=== PATIENT | male | born 1935 | race Caucasian/White ===

== ENCOUNTER 2019-10-01 19:04 | Inpatient (IN) | payer MEDICARE, MEDICAID ==
[~2019-10-01] VITALS: Ht 160 cm; Wt 54.0 kg
[2019-10-01] MEDS ORDERED: TETANUS AND DIPHTHERIA TOX/PF 0.5ML SYR (ADULT) IM ONE (20:00)
[2019-10-01 21:27] LABS: BASOPHILS % 1.2 % (0.0-2.0); EOSINOPHILS % 1.3 % (0.0-5.0); HEMATOCRIT. 35.2 % (42.0-52.0); HEMOGLOBIN. 11.8 g/dL (14.0-18.0); MEAN CORPUSCULAR HEMOGLOBIN 33.2 pg (28.0-32.0); MEAN PLATELET VOLUME 8.4 fl (7.4-10.4); MONOCYTES % 12.1 % (2.0-8.0); NEUTROPHILS % 65.4 % (40.0-76.0); PLATELET 244 x1000/uL (130-400); RED BLOOD CELL COUNT 3.56 mill/uL (4.7-6.1); RED CELL DISTRIBUTION WIDTH 18.8 % (11.6-14.6)
[2019-10-01 21:30] LABS: CHLORIDE 99 mEq/L (98-107)
[2019-10-01] MEDS ORDERED: NICARDIPINE 100 MG in SODIUM CHLORIDE 0.9% 60 ML IV PRN (22:30)
[2019-10-01] MEDS: DEXT 5%/0.9% NACL 1,000 ML IV SCH (22:30)
[2019-10-01] MEDS ORDERED: ACETAMINOPHEN 500MG TABLET PO ONE (22:45)
[2019-10-01] MEDS ORDERED: LEVETIRACETAM 500MG PREMIX 100 ML IV NR (23:00)
[2019-10-01] MEDS: NICARDIPINE 100 MG in SODIUM CHLORIDE 0.9% 60 ML IV PRN (23:28)
[2019-10-01] MEDS ORDERED: HYDROCODONE/ACETAMINOPHEN 5/325MG TABLET PO PRN (23:30)
[2019-10-02] VITALS (70 sets, daily range): BP systolic 78–144; BP diastolic 33–94
[2019-10-02] MEDS: MORPHINE SULFATE 2 MG/ML CPJ (NOT FOR IM USE) IV PRN ×2 (01:20→17:04)
[2019-10-02] MEDS: ONDANSETRON HCL 4MG/2ML INJ IV PRN (01:20)
[2019-10-02] MEDS ORDERED: LISINOPRIL 10MG TABLET PO SCH (04:15)
[2019-10-02 07:15] LABS: EOSINOPHILS % 2.5 % (0.0-5.0); HEMATOCRIT. 28.1 % (42.0-52.0); HEMOGLOBIN. 9.6 g/dL (14.0-18.0); LYMPHOCYTES % 21.5 % (20.0-50.0); MEAN CORPUSCULAR HEMOGLOBIN 33.6 pg (28.0-32.0); MEAN CORPUSCULAR VOLUME 98.2 fL (80.0-94.0); MEAN PLATELET VOLUME 7.8 fl (7.4-10.4); MONOCYTES % 11.3 % (2.0-8.0); NEUTROPHILS % 63.7 % (40.0-76.0); PLATELET 215 x1000/uL (130-400); RED BLOOD CELL COUNT 2.86 mill/uL (4.7-6.1); RED CELL DISTRIBUTION WIDTH 18.7 % (11.6-14.6)
[2019-10-02 07:30] LABS: CREATINE KINASE MB FRACTION 1.4 ng/mL (0.5-3.6)
[2019-10-02] MEDS: LISINOPRIL 10MG TABLET PO SCH (09:00)
[2019-10-02] MEDS ORDERED: LEVETIRACETAM 500MG PREMIX 100 ML IV SCH (09:00)
[2019-10-02] MEDS ORDERED: LEVETIRACETAM 500MG in SODIUM CHLORIDE 0.9% 100ML IV SCH (09:00)
[2019-10-02 10:31] LABS: TOTAL IRON BINDING CAPACITY 234 ug/dL (250-450)
[2019-10-02 11:00] LABS: FERRITIN 642 ng/mL (22-322)
[2019-10-02 11:11] LABS: HEPATITIS B SURFACE ANTIGEN NEGATIVE
[2019-10-02] MEDS: NICARDIPINE 100 MG in SODIUM CHLORIDE 0.9% 60 ML IV PRN (11:17)
[2019-10-02 11:41] LABS: HEPATITIS A AB IGM NEGATIVE (NEGATIVE)
[2019-10-02] MEDS: FERROUS SULFATE 325MG TABLET PO SCH (11:47)
[2019-10-02] MEDS: LEVETIRACETAM 500MG PREMIX 100 ML IV SCH ×2 (11:48→21:45)
[2019-10-02 16:52] LABS: CREATINE KINASE MB FRACTION 1.2 ng/mL (0.5-3.6)
[2019-10-02] MEDS ORDERED: SEVE800T8 MT (19:23)
[2019-10-02] MEDS ORDERED: AMLO10TA80 MT (19:23)
[2019-10-02] MEDS ORDERED: BENA20TA10 MT (19:23)
[2019-10-02] MEDS ORDERED: FOLI1TAB63 MT (19:23)
[2019-10-02] MEDS ORDERED: TRAZ-251 MT (19:23)
[2019-10-03] VITALS (90 sets, daily range): BP systolic 91–142; BP diastolic 33–110
[2019-10-03] MEDS: NICARDIPINE 100 MG in SODIUM CHLORIDE 0.9% 60 ML IV PRN (03:38)
[2019-10-03] MEDS: DEXT 5%/0.9% NACL 1,000 ML IV SCH ×2 (03:38→22:15)
[2019-10-03 05:59] LABS: BASOPHILS % 0.6 % (0.0-2.0); EOSINOPHILS % 0.3 % (0.0-5.0); HEMATOCRIT. 28.9 % (42.0-52.0); HEMOGLOBIN. 9.6 g/dL (14.0-18.0); LYMPHOCYTES % 10.7 % (20.0-50.0); MEAN CORPUSCULAR HEMOGLOBIN 33.1 pg (28.0-32.0); MEAN CORPUSCULAR VOLUME 99.8 fL (80.0-94.0); MEAN PLATELET VOLUME 8.4 fl (7.4-10.4); MONOCYTES % 10.4 % (2.0-8.0); PLATELET 226 x1000/uL (130-400)
[2019-10-03] MEDS: LISINOPRIL 10MG TABLET PO SCH (09:53)
[2019-10-03] MEDS: LEVETIRACETAM 500MG PREMIX 100 ML IV SCH ×2 (09:53→20:54)
[2019-10-03] MEDS: FERROUS SULFATE 325MG TABLET PO SCH (09:53)
[2019-10-03] MEDS: RISPERIDONE 0.5MG TABLET PO SCH (16:50)
[2019-10-03] MEDS: AMLODIPINE 5MG TABLET PO SCH ×2 (20:54→21:00)
[2019-10-03] MEDS: LISINOPRIL 20MG TABLET PO SCH ×2 (20:55→21:00)
[2019-10-04] VITALS (64 sets, daily range): BP systolic 98–164; BP diastolic 44–102
[2019-10-04] MEDS: LORAZEPAM 2MG/ML CPJ IV PRN (04:12)
[2019-10-04 06:00] LABS: BASOPHILS % 0.3 % (0.0-2.0); EOSINOPHILS % 0.4 % (0.0-5.0); HEMATOCRIT. 28.2 % (42.0-52.0); HEMOGLOBIN. 9.6 g/dL (14.0-18.0); MEAN CORPUSCULAR HEMOGLOBIN 33.9 pg (28.0-32.0); MEAN CORPUSCULAR VOLUME 99.5 fL (80.0-94.0); MEAN PLATELET VOLUME 8.7 fl (7.4-10.4); MONOCYTES % 7.8 % (2.0-8.0); NEUTROPHILS % 82.5 % (40.0-76.0); PLATELET 223 x1000/uL (130-400); RED BLOOD CELL COUNT 2.83 mill/uL (4.7-6.1); RED CELL DISTRIBUTION WIDTH 18.7 % (11.6-14.6)
[2019-10-04] MEDS ORDERED: LISINOPRIL 20MG TABLET PO SCH (09:00)
[2019-10-04] MEDS: FERROUS SULFATE 325MG TABLET PO SCH (09:31)
[2019-10-04] MEDS: LISINOPRIL 20MG TABLET PO SCH ×2 (11:15→21:44)
[2019-10-04] MEDS: AMLODIPINE 5MG TABLET PO SCH ×2 (11:15→21:43)
[2019-10-04] MEDS: RISPERIDONE 0.5MG TABLET PO SCH (11:15)
[2019-10-04] MEDS: LEVETIRACETAM 500MG PREMIX 100 ML IV SCH ×2 (11:16→22:49)
[2019-10-04] MEDS: DEXT 5%/0.9% NACL 1,000 ML IV SCH (11:17)
[2019-10-04] MEDS: CLONIDINE 0.1MG TABLET PO PRN (17:24)
[2019-10-05] VITALS (10 sets, daily range): BP systolic 121–161; BP diastolic 55–74
[2019-10-05] MEDS: LORAZEPAM 2MG/ML CPJ IV PRN ×2 (02:34→22:50)
[2019-10-05 07:54] LABS: BASOPHILS % 0.8 % (0.0-2.0); EOSINOPHILS % 2.5 % (0.0-5.0); HEMATOCRIT. 28.5 % (42.0-52.0); HEMOGLOBIN. 9.6 g/dL (14.0-18.0); MEAN CORPUSCULAR HEMOGLOBIN 33.6 pg (28.0-32.0); MEAN CORPUSCULAR VOLUME 99.6 fL (80.0-94.0); MEAN PLATELET VOLUME 8.5 fl (7.4-10.4); MONOCYTES % 8.6 % (2.0-8.0); NEUTROPHILS % 72.1 % (40.0-76.0); PLATELET 206 x1000/uL (130-400); RED BLOOD CELL COUNT 2.86 mill/uL (4.7-6.1); RED CELL DISTRIBUTION WIDTH 18.6 % (11.6-14.6)
[2019-10-05] MEDS: RISPERIDONE 0.5MG TABLET PO SCH (08:34)
[2019-10-05] MEDS: LISINOPRIL 20MG TABLET PO SCH ×2 (08:35→21:19)
[2019-10-05] MEDS: AMLODIPINE 5MG TABLET PO SCH ×2 (08:35→21:19)
[2019-10-05] MEDS: FERROUS SULFATE 325MG TABLET PO SCH (09:04)
[2019-10-05] MEDS: LEVETIRACETAM 500MG PREMIX 100 ML IV SCH ×2 (11:27→21:15)
[2019-10-05] MEDS: DEXT 5%/0.9% NACL 1,000 ML IV SCH (19:43)
[2019-10-06] VITALS (10 sets, daily range): BP systolic 135–169; BP diastolic 65–76
[2019-10-06] MEDS: CLONIDINE 0.1MG TABLET PO PRN (02:07)
[2019-10-06] MEDS: LEVETIRACETAM 500MG PREMIX 100 ML IV SCH ×2 (09:22→20:21)
[2019-10-06] MEDS: LISINOPRIL 20MG TABLET PO SCH ×2 (09:22→20:22)
[2019-10-06] MEDS: FERROUS SULFATE 325MG TABLET PO SCH (09:22)
[2019-10-06] MEDS: AMLODIPINE 5MG TABLET PO SCH ×2 (09:22→20:22)
[2019-10-06] MEDS: RISPERIDONE 0.5MG TABLET PO SCH (09:22)
[2019-10-06] MEDS: LORAZEPAM 2MG/ML CPJ IV PRN ×3 (10:26→22:22)
[2019-10-06] MEDS ORDERED: MAGNESIUM/ALUMINUM HYDROXIDE/SIMETHICONE 30ML UDC PO PRN (11:00)
[2019-10-06] MEDS: MEGESTROL ACETATE 400 MG/10 ML UDC PO SCH (14:15)
[2019-10-06] MEDS ORDERED: LEVETIRACETAM 500MG TABLET PO SCH (21:00)
[2019-10-06] MEDS: IPRATROPIUM BROMIDE (0.02%) 0.5MG/2.5ML NEB HHN PRN (21:03)
[2019-10-07] VITALS (12 sets, daily range): BP systolic 147–176; BP diastolic 44–91
[2019-10-07] MEDS: IPRATROPIUM BROMIDE (0.02%) 0.5MG/2.5ML NEB HHN PRN (01:07)
[2019-10-07 08:09] LABS: BG BASE EXCESS -5.1 mmol/L (-2.0-2.0); BG CARBOXYHEMOGLOBIN 0.3 % (0.5-1.5); BG DEOXYHEMOGLOBIN 10.9 % (0.0-5.0); BG FRACTION INSPIRED OXYGEN 21; BG HCO3 ACT 18.3 mmol/L (22.0-26.0); BG METHEMOGLOBIN 0.3 % (0.0-1.5); BG OXYHEMOGLOBIN 88.5 % (94.0-97.0); BG PH 7.432 (7.350-7.450); BG SAMPLE SITE RIGHT RADIAL; BG TOTAL HEMOGLOBIN 9.8 g/dL (12.0-18.0); BG VENT MODE ROOM AIR
[2019-10-07] MEDS ORDERED: PIPERACILLIN/TAZOBACTAM 2.25 G in DEXTROSE 5% WATER 50 ML IV SCH (08:45)
[2019-10-07] MEDS ORDERED: MEGESTROL ACETATE 400 MG/10 ML UDC PO SCH (09:00)
[2019-10-07] MEDS: RISPERIDONE 0.5MG TABLET PO SCH (09:00)
[2019-10-07] MEDS ORDERED: LEVETIRACETAM 500MG TABLET PO SCH (09:00)
[2019-10-07] MEDS: MEGESTROL ACETATE 400 MG/10 ML UDC PO SCH (09:00)
[2019-10-07] MEDS: LISINOPRIL 20MG TABLET PO SCH ×2 (09:00→21:00)
[2019-10-07] MEDS: AMLODIPINE 5MG TABLET PO SCH ×2 (09:00→21:00)
[2019-10-07] MEDS ORDERED: LIDOCAINE HCL 1% 20ML VIAL (Pyxis) INJ ONE (09:02)
[2019-10-07] MEDS ORDERED: HEPARIN 100 UNITS/1 ML VIAL IVF PRN (10:00)
[2019-10-07] MEDS ORDERED: VANCOMYCIN 1250MG in DEXTROSE 5% WATER 250ML IV SCH (10:00)
[2019-10-07 11:26] LABS: BG BASE EXCESS -2.8 mmol/L (-2.0-2.0); BG BILEVEL POS AIRWAY PRESSURE 15/5; BG CARBOXYHEMOGLOBIN 0.3 % (0.5-1.5); BG DEOXYHEMOGLOBIN 0.2 % (0.0-5.0); BG FRACTION INSPIRED OXYGEN 100; BG HCO3 ACT 20.5 mmol/L (22.0-26.0); BG METHEMOGLOBIN 0.4 % (0.0-1.5); BG OXYGEN SATURATION 99.8 % (92.0-98.5); BG OXYHEMOGLOBIN 99.1 % (94.0-97.0); BG PCO2 31.4 mmHg (35.0-45.0); BG PH 7.433 (7.350-7.450); BG PO2 439.2 mmHg (75.0-100.0); BG SAMPLE SITE RIGHT RADIAL; BG TOTAL HEMOGLOBIN 12.5 g/dL (12.0-18.0); BG VENT MODE MASK - BIPAP; BG VENT RATE 18 set
[2019-10-07] MEDS: IPRATROPIUM/ALBUTEROL 0.5-3(2.5)MG/3ML NEB HHN SCH ×3 (11:59→20:42)
[2019-10-07] MEDS: ACETYLCYSTEINE 100MG/ML 10% VIAL 4ML INH SCH (12:00)
[2019-10-07] MEDS: PIPERACILLIN/TAZOBACTAM 2.25 G in DEXTROSE 5% WATER 50 ML IV SCH ×2 (16:25→22:56)
[2019-10-07] MEDS: DEXT 5%/0.9% NACL 1,000 ML IV SCH (22:46)
[2019-10-07] MEDS: HYDRALAZINE 20MG/ML VIAL IV PRN (22:47)
[2019-10-07] MEDS: LEVETIRACETAM 500MG PREMIX 100 ML IV SCH (22:55)
[2019-10-08] VITALS (12 sets, daily range): BP systolic 110–173; BP diastolic 49–106
[2019-10-08] MEDS: IPRATROPIUM/ALBUTEROL 0.5-3(2.5)MG/3ML NEB HHN SCH ×5 (00:50→20:22)
[2019-10-08] MEDS: IPRATROPIUM BROMIDE (0.02%) 0.5MG/2.5ML NEB HHN PRN (00:50)
[2019-10-08] MEDS: ACETYLCYSTEINE 100MG/ML 10% VIAL 4ML INH SCH ×2 (00:50→12:51)
[2019-10-08] MEDS: ONDANSETRON HCL 4MG/2ML INJ IV PRN ×2 (02:11→21:58)
[2019-10-08] MEDS: PIPERACILLIN/TAZOBACTAM 2.25 G in DEXTROSE 5% WATER 50 ML IV SCH ×3 (05:05→21:58)
[2019-10-08 07:02] LABS: BASOPHILS % 0.6 % (0.0-2.0); EOSINOPHILS % 0.9 % (0.0-5.0); HEMATOCRIT. 25.2 % (42.0-52.0); HEMOGLOBIN. 8.5 g/dL (14.0-18.0); LYMPHOCYTES % 16.6 % (20.0-50.0); MEAN CORPUSCULAR HEMOGLOBIN 33.1 pg (28.0-32.0); MEAN CORPUSCULAR VOLUME 98.2 fL (80.0-94.0); MEAN PLATELET VOLUME 8.4 fl (7.4-10.4); MONOCYTES % 13.6 % (2.0-8.0); NEUTROPHILS % 68.3 % (40.0-76.0); PLATELET 242 x1000/uL (130-400); RED BLOOD CELL COUNT 2.57 mill/uL (4.7-6.1); RED CELL DISTRIBUTION WIDTH 17.5 % (11.6-14.6)
[2019-10-08 08:07] LABS: BG BASE EXCESS -0.5 mmol/L (-2.0-2.0); BG CARBOXYHEMOGLOBIN 0.3 % (0.5-1.5); BG FRACTION INSPIRED OXYGEN 32; BG HCO3 ACT 22.8 mmol/L (22.0-26.0); BG METHEMOGLOBIN 0.1 % (0.0-1.5); BG OXYHEMOGLOBIN 93.6 % (94.0-97.0); BG SAMPLE SITE RIGHT RADIAL; BG TOTAL HEMOGLOBIN 9.3 g/dL (12.0-18.0); BG VENT MODE NASAL CANNULA
[2019-10-08] MEDS: LEVETIRACETAM 500MG PREMIX 100 ML IV SCH ×2 (08:46→21:57)
[2019-10-08] MEDS: AMLODIPINE 5MG TABLET PO SCH ×2 (09:00→21:00)
[2019-10-08] MEDS: RISPERIDONE 0.5MG TABLET PO SCH (09:00)
[2019-10-08] MEDS: MEGESTROL ACETATE 400 MG/10 ML UDC PO SCH (13:01)
[2019-10-08] MEDS: LISINOPRIL 20MG TABLET PO SCH ×2 (13:02→21:00)
[2019-10-08] MEDS ORDERED: VANCOMYCIN 1250MG in DEXTROSE 5% WATER 250ML IV NR (18:00)
[2019-10-08] MEDS ORDERED: VANCOMYCIN HCL 750 MG in DEXT 5% WATER 250 ML IV NR (18:00)
[2019-10-08] MEDS ORDERED: IOHEXOL-350 100 ML BOTTLE ONE (22:37)
[2019-10-09] VITALS (13 sets, daily range): BP systolic 123–170; BP diastolic 46–96
[2019-10-09] MEDS: IPRATROPIUM/ALBUTEROL 0.5-3(2.5)MG/3ML NEB HHN SCH ×6 (00:13→20:00)
[2019-10-09] MEDS: ACETYLCYSTEINE 100MG/ML 10% VIAL 4ML INH SCH ×3 (00:13→16:36)
[2019-10-09] MEDS: PIPERACILLIN/TAZOBACTAM 2.25 G in DEXTROSE 5% WATER 50 ML IV SCH ×3 (05:42→20:28)
[2019-10-09] MEDS: DEXT 5%/0.9% NACL 1,000 ML IV SCH ×2 (05:45→23:26)
[2019-10-09] MEDS: AMLODIPINE 5MG TABLET PO SCH ×3 (08:20→20:28)
[2019-10-09] MEDS: RISPERIDONE 0.5MG TABLET PO SCH (08:20)
[2019-10-09] MEDS: MEGESTROL ACETATE 400 MG/10 ML UDC PO SCH (08:20)
[2019-10-09] MEDS: LEVETIRACETAM 500MG PREMIX 100 ML IV SCH ×2 (08:20→20:28)
[2019-10-09] MEDS: LISINOPRIL 20MG TABLET PO SCH ×2 (08:20→20:27)
[2019-10-09] MEDS: HYDRALAZINE 20MG/ML VIAL IV PRN (10:16)
[2019-10-09] MEDS: CLONIDINE 0.1MG TABLET PO PRN (11:26)
[2019-10-10] VITALS (14 sets, daily range): BP systolic 95–166; BP diastolic 34–95
[2019-10-10] MEDS: IPRATROPIUM/ALBUTEROL 0.5-3(2.5)MG/3ML NEB HHN SCH ×5 (00:46→15:02)
[2019-10-10] MEDS: ACETYLCYSTEINE 100MG/ML 10% VIAL 4ML INH SCH (00:47)
[2019-10-10] MEDS: PIPERACILLIN/TAZOBACTAM 2.25 G in DEXTROSE 5% WATER 50 ML IV SCH ×2 (05:31→14:57)
[2019-10-10] MEDS: LEVETIRACETAM 500MG PREMIX 100 ML IV SCH ×2 (09:15→20:53)
[2019-10-10] MEDS: MEGESTROL ACETATE 400 MG/10 ML UDC PO SCH (09:15)
[2019-10-10] MEDS: RISPERIDONE 0.5MG TABLET PO SCH (09:15)
[2019-10-10] MEDS: LISINOPRIL 20MG TABLET PO SCH ×2 (09:16→20:53)
[2019-10-10] MEDS: AMLODIPINE 5MG TABLET PO SCH ×2 (09:16→20:52)
[2019-10-10] MEDS: VANCOMYCIN 500 MG PREMIX 100 ML IV NR ×2 (16:16→18:29)
[2019-10-10] MEDS: IPRATROPIUM BROMIDE (0.02%) 0.5MG/2.5ML NEB HHN PRN (20:49)
[2019-10-10] MEDS: DEXT 5%/0.9% NACL 1,000 ML IV SCH (20:54)
== END 2019-10-10 22:00 | DRG 85 ==
LOC: ER 19:04 → MICUNO 21:54 → EDBEDREQTM 22:00 → EDBEDREQ 22:00 → EDBEDREQSVC 22:00 → ENRESERV 10-02 04:12 → EDBEDREQTM 10-02 04:17 → 5EST 10-04 18:33
PROVIDERS: ADMIT Internal Medicine Nephrology; ATTEND Internal Medicine Nephrology
PROC: 4A00X4Z Measurement of Central Nervous Electrical Activity, External Approach (ICD-10-PCS; principal; 2019-10-02)
PROC: 5A1D70Z Performance of Urinary Filtration, Intermittent, Less than 6 Hours Per Day (ICD-10-PCS; 2019-10-04)
PROC: B54MZZA Ultrasonography of Right Upper Extremity Veins, Guidance (ICD-10-PCS; 2019-10-07)
PROC: 05HY33Z Insertion of Infusion Device into Upper Vein, Percutaneous Approach (ICD-10-PCS; 2019-10-07)
PROC: 5A09357 Assistance with Respiratory Ventilation, Less than 24 Consecutive Hours, Continuous Positive Airway Pressure (ICD-10-PCS; 2019-10-07)
PROC: 5A1D70Z Performance of Urinary Filtration, Intermittent, Less than 6 Hours Per Day (ICD-10-PCS; 2019-10-08)
PROC: 5A1D70Z Performance of Urinary Filtration, Intermittent, Less than 6 Hours Per Day (ICD-10-PCS; 2019-10-10)
DX: S06.890A Other specified intracranial injury without loss of consciousness, initial encounter (principal); N18.6 End stage renal disease; E43 Unspecified severe protein-calorie malnutrition; G82.50 Quadriplegia, unspecified; G92 Toxic encephalopathy; I50.43 Acute on chronic combined systolic (congestive) and diastolic (congestive) heart failure; J96.01 Acute respiratory failure with hypoxia; G96.0 Cerebrospinal fluid leak; I13.2 Hypertensive heart and chronic kidney disease with heart failure and with stage 5 chronic kidney disease, or end stage renal disease; R47.01 Aphasia; R65.10 Systemic inflammatory response syndrome (SIRS) of non-infectious origin without acute organ dysfunction; K74.60 Unspecified cirrhosis of liver; M48.061 Spinal stenosis, lumbar region without neurogenic claudication; F03.90 Unspecified dementia, unspecified severity, without behavioral disturbance, psychotic disturbance, mood disturbance, and anxiety; D63.8 Anemia in other chronic diseases classified elsewhere; E11.22 Type 2 diabetes mellitus with diabetic chronic kidney disease; S01.81XA Laceration without foreign body of other part of head, initial encounter; R26.9 Unspecified abnormalities of gait and mobility; W01.0XXA Fall on same level from slipping, tripping and stumbling without subsequent striking against object, initial encounter; M71.58 Other bursitis, not elsewhere classified, other site; K80.20 Calculus of gallbladder without cholecystitis without obstruction; R13.10 Dysphagia, unspecified; Z86.73 Personal history of transient ischemic attack (TIA), and cerebral infarction without residual deficits; Z99.2 Dependence on renal dialysis; Z68.21 Body mass index [BMI] 21.0-21.9, adult; Y92.009 Unspecified place in unspecified non-institutional (private) residence as the place of occurrence of the external cause; Y93.89 Activity, other specified; Y99.8 Other external cause status
CPT/HCPCS: 36415; 36600; 70498; 70551; 71045; 72131; 72192; 76700; 76937; 80048; 80053; 80202; 82140; 82375; 82550; 82553; 82728; 82805; 83540; 83550; 84484; 85025; 86705; 86709; 86803; 87340; 90471; 90714; 92610; 93005; 93880; 93970; 94640; 94660; 94667; 96365; 96368; 96375; 97110; 97162; 97164; 97166; 97530; 97535; 99285; C1725; C1893; J0360; J1642; J1953; J2060; J2270; J2405; J2543; J3370; J3490; J7040; J7042; J7050; J7060; J7608; Q9967

== ENCOUNTER 2019-10-10 21:50 | Inpatient (IN) | payer MEDICARE, MEDICAID ==
[~2019-10-10] VITALS: Ht 160 cm; Wt 54.0 kg
[2019-10-10 21:50] VITALS: BP 131/63
[~2019-10-10 21:50] MED LIST: AMLO10TA80 MT; BENA20TA10 MT; FOLI1TAB63 MT; SEVE800T8 MT; TRAZ-251 MT
[2019-10-10 22:00] VITALS: BP 131/63
[2019-10-10] MEDS ORDERED: MAGNESIUM/ALUMINUM HYDROXIDE/SIMETHICONE 30ML UDC PO PRN (22:45)
[2019-10-10] MEDS ORDERED: ONDANSETRON HCL 4MG/2ML INJ IV PRN (22:45)
[2019-10-10] MEDS ORDERED: LEVETIRACETAM 500 MG in SODIUM CHLORIDE 0.9% 100 ML IV SCH (22:45)
[2019-10-10] MEDS ORDERED: HYDRALAZINE HCL 10MG TABLET PO PRN (22:45)
[2019-10-11] MEDS ORDERED: DEXT 5%/0.9% NACL 1,000 ML IV SCH
[2019-10-11] MEDS: ACETYLCYSTEINE 100MG/ML 10% VIAL 4ML INH SCH ×2 (01:03→09:40)
[2019-10-11] MEDS: IPRATROPIUM BROMIDE (0.02%) 0.5MG/2.5ML NEB HHN PRN (01:32)
[2019-10-11] MEDS: PIPERACILLIN/TAZOBACTAM 2.25 G in DEXTROSE 5% WATER 50 ML IV SCH ×3 (05:43→21:41)
[2019-10-11 06:08] LABS: BASOPHILS % 1.3 % (0.0-2.0); EOSINOPHILS % 4.1 % (0.0-5.0); HEMATOCRIT. 25.3 % (42.0-52.0); HEMOGLOBIN. 8.5 g/dL (14.0-18.0); LYMPHOCYTES % 26.4 % (20.0-50.0); MEAN CORPUSCULAR HEMOGLOBIN 32.8 pg (28.0-32.0); MEAN CORPUSCULAR VOLUME 97.8 fL (80.0-94.0); MEAN PLATELET VOLUME 8.2 fl (7.4-10.4); MONOCYTES % 12.6 % (2.0-8.0); NEUTROPHILS % 55.6 % (40.0-76.0); PLATELET 268 x1000/uL (130-400); RED BLOOD CELL COUNT 2.59 mill/uL (4.7-6.1); RED CELL DISTRIBUTION WIDTH 17.7 % (11.6-14.6)
[2019-10-11 07:16] LABS: CHLORIDE 104 mEq/L (98-107)
[2019-10-11 08:04] VITALS: BP 143/53
[2019-10-11] MEDS: IPRATROPIUM/ALBUTEROL 0.5-3(2.5)MG/3ML NEB HHN SCH ×2 (09:40→21:03)
[2019-10-11] MEDS: RISPERIDONE 0.5MG TABLET PO SCH (09:46)
[2019-10-11] MEDS: MEGESTROL ACETATE 400 MG/10 ML UDC PO SCH (09:46)
[2019-10-11] MEDS: AMLODIPINE 5MG TABLET PO SCH ×2 (09:46→20:45)
[2019-10-11] MEDS: LISINOPRIL 20MG TABLET PO SCH ×2 (09:47→20:46)
[2019-10-11] MEDS: LEVETIRACETAM 500MG PREMIX 100 ML IV SCH ×2 (09:50→20:45)
[2019-10-11] MEDS ORDERED: BISACODYL 5MG TABLET PO PRN (10:45)
[2019-10-11] MEDS ORDERED: NA PHOS,M-B/NA PHOS,DI-BA ENEMA 118ML PR PRN (10:45)
[2019-10-11] MEDS ORDERED: LACTULOSE 20G/30ML UDC PO PRN (10:45)
[2019-10-11 17:35] LABS: TOTAL IRON BINDING CAPACITY 151 ug/dL (250-450)
[2019-10-11 20:00] VITALS: BP 153/63
[2019-10-12] MEDS: IPRATROPIUM/ALBUTEROL 0.5-3(2.5)MG/3ML NEB HHN SCH ×5 (01:18→20:38)
[2019-10-12] MEDS: PIPERACILLIN/TAZOBACTAM 2.25 G in DEXTROSE 5% WATER 50 ML IV SCH ×3 (05:03→21:15)
[2019-10-12 06:57] LABS: EOSINOPHILS % 3.8 % (0.0-5.0); HEMATOCRIT. 24.5 % (42.0-52.0); HEMOGLOBIN. 8.6 g/dL (14.0-18.0); LYMPHOCYTES % 26.4 % (20.0-50.0); MEAN CORPUSCULAR HEMOGLOBIN 34.4 pg (28.0-32.0); MEAN PLATELET VOLUME 7.8 fl (7.4-10.4); MONOCYTES % 12.5 % (2.0-8.0); NEUTROPHILS % 56.3 % (40.0-76.0); PLATELET 275 x1000/uL (130-400); RED CELL DISTRIBUTION WIDTH 17.2 % (11.6-14.6)
[2019-10-12 07:25] LABS: PHOSPHORUS 4.1 mg/dL (2.5-4.9)
[2019-10-12 07:28] LABS: FOLIC ACID (FOLATE) SERUM >20 ng/mL ng/mL (>5.38)
[2019-10-12 07:31] LABS: FERRITIN 893 ng/mL (22-322); PROSTRATE SPECIFIC AG TOTAL 6.09 ng/mL (0.0-4.0)
[2019-10-12 07:44] VITALS: BP 160/61
[2019-10-12 07:48] LABS: VITAMIN B12 SERUM 1602 pg/mL (211-911)
[2019-10-12] MEDS: ACETYLCYSTEINE 100MG/ML 10% VIAL 4ML INH SCH ×2 (08:11→14:00)
[2019-10-12] MEDS: LEVETIRACETAM 500MG PREMIX 100 ML IV SCH (08:30)
[2019-10-12] MEDS: MEGESTROL ACETATE 400 MG/10 ML UDC PO SCH (08:30)
[2019-10-12] MEDS: RISPERIDONE 0.5MG TABLET PO SCH (08:30)
[2019-10-12] MEDS: LISINOPRIL 20MG TABLET PO SCH ×2 (08:31→21:00)
[2019-10-12] MEDS: AMLODIPINE 5MG TABLET PO SCH ×2 (08:31→21:00)
[2019-10-12 20:00] VITALS: BP 135/58
[2019-10-12] MEDS: LEVETIRACETAM 500MG TABLET PO SCH (21:15)
[2019-10-13] MEDS: IPRATROPIUM/ALBUTEROL 0.5-3(2.5)MG/3ML NEB HHN SCH ×6 (00:32→21:08)
[2019-10-13] MEDS: ACETYLCYSTEINE 100MG/ML 10% VIAL 4ML INH SCH ×3 (00:32→16:55)
[2019-10-13] MEDS: EPOETIN ALFA 4000UNITS/ML VIAL SUBCUT SCH (00:49)
[2019-10-13] MEDS: PROMETHAZINE/DEXTROMETHORPHAN 6.25-15MG/5ML BOTTLE 120ML PO PRN (00:49)
[2019-10-13] MEDS: PIPERACILLIN/TAZOBACTAM 2.25 G in DEXTROSE 5% WATER 50 ML IV SCH ×3 (06:27→21:28)
[2019-10-13 07:56] VITALS: BP 139/71
[2019-10-13] MEDS: AMLODIPINE 5MG TABLET PO SCH ×2 (09:45→20:36)
[2019-10-13] MEDS: LISINOPRIL 20MG TABLET PO SCH ×2 (09:45→20:35)
[2019-10-13] MEDS: RISPERIDONE 0.5MG TABLET PO SCH (09:45)
[2019-10-13] MEDS: LEVETIRACETAM 500MG TABLET PO SCH ×2 (09:45→20:36)
[2019-10-13] MEDS: MEGESTROL ACETATE 400 MG/10 ML UDC PO SCH (09:46)
[2019-10-13 20:00] VITALS: BP 121/41
[2019-10-14] MEDS: PIPERACILLIN/TAZOBACTAM 2.25 G in DEXTROSE 5% WATER 50 ML IV SCH ×3 (05:15→21:37)
[2019-10-14 07:50] VITALS: BP 160/51
[2019-10-14] MEDS: LISINOPRIL 20MG TABLET PO SCH ×2 (08:37→21:37)
[2019-10-14] MEDS: MEGESTROL ACETATE 400 MG/10 ML UDC PO SCH (08:37)
[2019-10-14] MEDS: LEVETIRACETAM 500MG TABLET PO SCH ×2 (08:37→21:36)
[2019-10-14] MEDS: RISPERIDONE 0.5MG TABLET PO SCH (08:37)
[2019-10-14] MEDS: IPRATROPIUM/ALBUTEROL 0.5-3(2.5)MG/3ML NEB HHN SCH ×4 (09:15→20:00)
[2019-10-14] MEDS: ACETYLCYSTEINE 100MG/ML 10% VIAL 4ML INH SCH (12:25)
[2019-10-14] MEDS: IPRATROPIUM BROMIDE (0.02%) 0.5MG/2.5ML NEB HHN PRN (15:59)
[2019-10-14 20:00] VITALS: BP 149/61
[2019-10-15] MEDS: IPRATROPIUM/ALBUTEROL 0.5-3(2.5)MG/3ML NEB HHN SCH ×5 (05:05→20:44)
[2019-10-15 07:02] LABS: BASOPHILS % 0.7 % (0.0-2.0); HEMATOCRIT. 22.4 % (42.0-52.0); HEMOGLOBIN. 7.7 g/dL (14.0-18.0); LYMPHOCYTES % 22.3 % (20.0-50.0); MEAN CORPUSCULAR HEMOGLOBIN 33.3 pg (28.0-32.0); MEAN CORPUSCULAR VOLUME 96.5 fL (80.0-94.0); MEAN PLATELET VOLUME 8.7 fl (7.4-10.4); MONOCYTES % 9.8 % (2.0-8.0); NEUTROPHILS % 65.2 % (40.0-76.0); PLATELET 304 x1000/uL (130-400); RED BLOOD CELL COUNT 2.32 mill/uL (4.7-6.1); RED CELL DISTRIBUTION WIDTH 17.6 % (11.6-14.6)
[2019-10-15 07:14] LABS: T4 FREE 1.01 ng/dL (0.76-1.46)
[2019-10-15] MEDS: ACETYLCYSTEINE 100MG/ML 10% VIAL 4ML INH SCH ×2 (07:25→16:14)
[2019-10-15 08:03] VITALS: BP 173/69
[2019-10-15] MEDS: MEGESTROL ACETATE 400 MG/10 ML UDC PO SCH (08:52)
[2019-10-15] MEDS: LISINOPRIL 20MG TABLET PO SCH ×2 (08:52→21:00)
[2019-10-15] MEDS: RISPERIDONE 0.5MG TABLET PO SCH (08:52)
[2019-10-15] MEDS: LEVETIRACETAM 500MG TABLET PO SCH ×2 (08:52→20:54)
[2019-10-15] MEDS: CLONIDINE 0.1MG TABLET PO PRN (09:41)
[2019-10-15 20:00] VITALS: BP 151/55
[2019-10-15] MEDS: EPOETIN ALFA 4000UNITS/ML VIAL SUBCUT SCH (23:39)
[2019-10-16] MEDS: ACETYLCYSTEINE 100MG/ML 10% VIAL 4ML INH SCH (00:12)
[2019-10-16] MEDS: IPRATROPIUM/ALBUTEROL 0.5-3(2.5)MG/3ML NEB HHN SCH ×4 (00:13→21:11)
[2019-10-16] MEDS: PROMETHAZINE/DEXTROMETHORPHAN 6.25-15MG/5ML BOTTLE 120ML PO PRN (05:58)
[2019-10-16 07:43] VITALS: BP 162/55
[2019-10-16] MEDS: MEGESTROL ACETATE 400 MG/10 ML UDC PO SCH (08:13)
[2019-10-16] MEDS: RISPERIDONE 0.5MG TABLET PO SCH (08:13)
[2019-10-16] MEDS: LEVETIRACETAM 500MG TABLET PO SCH ×2 (08:13→21:57)
[2019-10-16] MEDS: LISINOPRIL 20MG TABLET PO SCH ×2 (08:13→21:57)
[2019-10-16 20:00] VITALS: BP 156/50
[2019-10-17] MEDS: IPRATROPIUM/ALBUTEROL 0.5-3(2.5)MG/3ML NEB HHN SCH ×6 (00:39→21:02)
[2019-10-17] MEDS: ACETAMINOPHEN 650MG/20.3ML UDC PO PRN (01:53)
[2019-10-17] MEDS: CLONIDINE 0.1MG TABLET PO PRN (04:36)
[2019-10-17 07:52] VITALS: BP_SYST 167; BP_DIAS 70; BP_DIAS 78
[2019-10-17] MEDS: RISPERIDONE 0.5MG TABLET PO SCH (08:09)
[2019-10-17] MEDS: LEVETIRACETAM 500MG TABLET PO SCH ×2 (08:09→21:24)
[2019-10-17] MEDS: MEGESTROL ACETATE 400 MG/10 ML UDC PO SCH (08:09)
[2019-10-17] MEDS: LISINOPRIL 20MG TABLET PO SCH ×2 (08:09→21:25)
[2019-10-17 19:09] LABS: 25-HYDROXY VITAMIN D3 12 ng/mL (.)
[2019-10-17 20:00] VITALS: BP 155/69
[2019-10-17] MEDS: EPOETIN ALFA 4000UNITS/ML VIAL SUBCUT SCH (21:25)
[2019-10-18] MEDS: IPRATROPIUM/ALBUTEROL 0.5-3(2.5)MG/3ML NEB HHN SCH ×6 (00:23→21:24)
[2019-10-18] MEDS: ACETAMINOPHEN 650MG/20.3ML UDC PO PRN (01:56)
[2019-10-18 07:55] VITALS: BP 179/71
[2019-10-18] MEDS: RISPERIDONE 0.5MG TABLET PO SCH (08:19)
[2019-10-18] MEDS: LEVETIRACETAM 500MG TABLET PO SCH ×2 (08:19→20:28)
[2019-10-18] MEDS: LISINOPRIL 20MG TABLET PO SCH ×2 (08:19→20:29)
[2019-10-18] MEDS: MEGESTROL ACETATE 400 MG/10 ML UDC PO SCH (08:20)
[2019-10-18 13:06] VITALS: BP 148/59
[2019-10-18] MEDS ORDERED: ERGOCALCIFEROL 50000UNITS CAPSULE PO SCH (16:30)
[2019-10-18 20:00] VITALS: BP 158/58
[2019-10-19] MEDS: ACETAMINOPHEN 650MG/20.3ML UDC PO PRN (04:45)
[2019-10-19 07:00] LABS: EOSINOPHILS % 1.2 % (0.0-5.0); HEMATOCRIT. 23.8 % (42.0-52.0); HEMOGLOBIN. 8.1 g/dL (14.0-18.0); LYMPHOCYTES % 21.9 % (20.0-50.0); MEAN CORPUSCULAR HEMOGLOBIN 33.4 pg (28.0-32.0); MEAN CORPUSCULAR VOLUME 98.8 fL (80.0-94.0); MEAN PLATELET VOLUME 8.1 fl (7.4-10.4); MONOCYTES % 13.6 % (2.0-8.0); NEUTROPHILS % 62.3 % (40.0-76.0); PLATELET 373 x1000/uL (130-400); RED BLOOD CELL COUNT 2.41 mill/uL (4.7-6.1); RED CELL DISTRIBUTION WIDTH 18.8 % (11.6-14.6)
[2019-10-19 07:17] LABS: CHLORIDE 100 mEq/L (98-107)
[2019-10-19 07:24] LABS: PHOSPHORUS 3.8 mg/dL (2.5-4.9)
[2019-10-19 08:00] VITALS: BP 188/75
[2019-10-19] MEDS: LISINOPRIL 20MG TABLET PO SCH ×3 (08:07→21:42)
[2019-10-19] MEDS: RISPERIDONE 0.5MG TABLET PO SCH (08:07)
[2019-10-19 08:08] VITALS: BP 182/72
[2019-10-19] MEDS: LEVETIRACETAM 500MG TABLET PO SCH ×3 (08:08→21:41)
[2019-10-19] MEDS: MEGESTROL ACETATE 400 MG/10 ML UDC PO SCH (08:08)
[2019-10-19] MEDS: IPRATROPIUM BROMIDE (0.02%) 0.5MG/2.5ML NEB HHN PRN ×2 (09:58→12:12)
[2019-10-19] MEDS: IPRATROPIUM/ALBUTEROL 0.5-3(2.5)MG/3ML NEB HHN SCH ×2 (16:00→22:10)
[2019-10-19 20:00] VITALS: BP 189/64
[2019-10-19] MEDS: CLONIDINE 0.1MG TABLET PO PRN (20:02)
[2019-10-20] MEDS: IPRATROPIUM/ALBUTEROL 0.5-3(2.5)MG/3ML NEB HHN SCH ×6 (01:00→19:56)
[2019-10-20 08:00] VITALS: BP 195/80
[2019-10-20] MEDS: RISPERIDONE 0.5MG TABLET PO SCH (08:13)
[2019-10-20] MEDS: MEGESTROL ACETATE 400 MG/10 ML UDC PO SCH (08:14)
[2019-10-20] MEDS: LEVETIRACETAM 500MG TABLET PO SCH ×2 (08:14→20:47)
[2019-10-20] MEDS: LISINOPRIL 20MG TABLET PO SCH ×2 (08:14→20:47)
[2019-10-20 09:17] VITALS: BP 156/53
[2019-10-20 20:00] VITALS: BP 161/70
[2019-10-20 22:30] VITALS: BP 152/72
[2019-10-20] MEDS: ACETAMINOPHEN 650MG/20.3ML UDC PO PRN (23:13)
[2019-10-20] MEDS: CLONIDINE 0.1MG TABLET PO PRN (23:13)
[2019-10-21] MEDS: IPRATROPIUM/ALBUTEROL 0.5-3(2.5)MG/3ML NEB HHN SCH ×6 (00:01→20:00)
[2019-10-21] MEDS: PROMETHAZINE/DEXTROMETHORPHAN 6.25-15MG/5ML BOTTLE 120ML PO PRN (02:16)
[2019-10-21] MEDS: ACETAMINOPHEN 650MG/20.3ML UDC PO PRN (04:25)
[2019-10-21 07:01] LABS: BASOPHILS % 0.7 % (0.0-2.0); EOSINOPHILS % 0.7 % (0.0-5.0); HEMATOCRIT. 23.6 % (42.0-52.0); HEMOGLOBIN. 7.9 g/dL (14.0-18.0); LYMPHOCYTES % 20.5 % (20.0-50.0); MEAN CORPUSCULAR HEMOGLOBIN 33.6 pg (28.0-32.0); MEAN PLATELET VOLUME 8.1 fl (7.4-10.4); MONOCYTES % 12.8 % (2.0-8.0); NEUTROPHILS % 65.3 % (40.0-76.0); PLATELET 369 x1000/uL (130-400); RED BLOOD CELL COUNT 2.36 mill/uL (4.7-6.1); RED CELL DISTRIBUTION WIDTH 19.4 % (11.6-14.6)
[2019-10-21 07:33] VITALS: BP 191/73
[2019-10-21] MEDS: MEGESTROL ACETATE 400 MG/10 ML UDC PO SCH (08:32)
[2019-10-21] MEDS: CLONIDINE 0.1MG TABLET PO PRN (08:32)
[2019-10-21] MEDS: LISINOPRIL 20MG TABLET PO SCH (08:33)
[2019-10-21] MEDS: RISPERIDONE 0.5MG TABLET PO SCH (08:33)
[2019-10-21] MEDS: LEVETIRACETAM 500MG TABLET PO SCH (08:33)
[2019-10-21 11:26] VITALS: BP 160/59
[2019-10-21 15:14] VITALS: BP 135/47
[2019-10-21] MEDS ORDERED: FOLI1TAB63 MT (18:30)
[2019-10-21] MEDS ORDERED: TRAZ-251 MT (18:30)
[2019-10-21] MEDS ORDERED: KEPP500 PO (18:30)
[2019-10-21] MEDS ORDERED: SEVE800T8 MT (18:30)
[2019-10-21] MEDS ORDERED: AMLO10TA80 MT (18:30)
[2019-10-21] MEDS ORDERED: BENA20TA10 MT (18:30)
[2019-10-21 20:00] VITALS: BP 136/61
[2019-10-22] MEDS: LISINOPRIL 20MG TABLET PO SCH ×2 (00:10→08:20)
[2019-10-22] MEDS: LEVETIRACETAM 500MG TABLET PO SCH ×2 (00:10→08:19)
[2019-10-22] MEDS: PROMETHAZINE/DEXTROMETHORPHAN 6.25-15MG/5ML BOTTLE 120ML PO PRN (00:10)
[2019-10-22] MEDS: IPRATROPIUM/ALBUTEROL 0.5-3(2.5)MG/3ML NEB HHN SCH ×3 (03:14→10:10)
[2019-10-22 08:00] VITALS: BP 185/64
[2019-10-22] MEDS: RISPERIDONE 0.5MG TABLET PO SCH (08:19)
[2019-10-22] MEDS: MEGESTROL ACETATE 400 MG/10 ML UDC PO SCH (08:20)
[2019-10-22 09:31] VITALS: BP 157/62
[2019-10-22] MEDS ORDERED: RISP05 MT (10:50)
== END 2019-10-22 13:22 | disposition home health service (06) | DRG 85 ==
PROVIDERS: ADMIT Physical Medicine & Rehabilitation Spinal Cord Injury Medicine; ATTEND Internal Medicine Nephrology
DX: S06.9X0A Unspecified intracranial injury without loss of consciousness, initial encounter (principal); G82.50 Quadriplegia, unspecified; J96.00 Acute respiratory failure, unspecified whether with hypoxia or hypercapnia; N18.6 End stage renal disease; A41.9 Sepsis, unspecified organism; J69.0 Pneumonitis due to inhalation of food and vomit; G96.0 Cerebrospinal fluid leak; I13.2 Hypertensive heart and chronic kidney disease with heart failure and with stage 5 chronic kidney disease, or end stage renal disease; R47.01 Aphasia; J90 Pleural effusion, not elsewhere classified; I50.9 Heart failure, unspecified; R47.1 Dysarthria and anarthria; R53.81 Other malaise; R26.9 Unspecified abnormalities of gait and mobility; G89.29 Other chronic pain; M54.5 Low back pain; M48.061 Spinal stenosis, lumbar region without neurogenic claudication; M16.0 Bilateral primary osteoarthritis of hip; K74.60 Unspecified cirrhosis of liver; D63.8 Anemia in other chronic diseases classified elsewhere; E11.22 Type 2 diabetes mellitus with diabetic chronic kidney disease; F03.90 Unspecified dementia, unspecified severity, without behavioral disturbance, psychotic disturbance, mood disturbance, and anxiety; K80.20 Calculus of gallbladder without cholecystitis without obstruction; M43.16 Spondylolisthesis, lumbar region; R13.10 Dysphagia, unspecified; Z99.2 Dependence on renal dialysis; Z86.73 Personal history of transient ischemic attack (TIA), and cerebral infarction without residual deficits; W18.39XA Other fall on same level, initial encounter; Y93.89 Activity, other specified; Y92.89 Other specified places as the place of occurrence of the external cause; Y99.8 Other external cause status
CPT/HCPCS: 36415; 80048; 80053; 82306; 82607; 82728; 82746; 83520; 83540; 83550; 83735; 83970; 84100; 84134; 84153; 84439; 84443; 84466; 84481; 85025; 86376; 92523; 92610; 93970; 94640; 97110; 97112; 97116; 97162; 97166; 97530; 97535; J0885; J1953; J2543; J7042; J7060; J7608; G0103

== ENCOUNTER 2020-04-08 14:19 | Inpatient (IN) | payer MEDICARE, MEDICAID ==
[~2020-04-08] VITALS: Ht 160 cm; Wt 62.6 kg
[~2020-04-08 14:19] MED LIST changes: +KEPP500 PO; +RISP05 MT
[2020-04-08] MEDS ORDERED: SODIUM CHLORIDE 0.9% 250 ML IV ONE (16:39)
[2020-04-08 17:06] LABS: BASOPHILS % 1.3 % (0.0-2.0); EOSINOPHILS % 1.1 % (0.0-5.0); HEMATOCRIT. 35.5 % (42.0-52.0); HEMOGLOBIN. 11.9 g/dL (14.0-18.0); LYMPHOCYTES % 27.5 % (20.0-50.0); MEAN CORPUSCULAR VOLUME 101.4 fL (80.0-94.0); MEAN PLATELET VOLUME 9.8 fl (7.4-10.4); MONOCYTES % 13.6 % (2.0-8.0); NEUTROPHILS % 56.5 % (40.0-76.0); PLATELET 110 x1000/uL (130-400); RED CELL DISTRIBUTION WIDTH 17.5 % (11.6-14.6)
[2020-04-08 17:15] LABS: CHLORIDE 99 mEq/L (98-107)
[2020-04-08 17:18] LABS: INR 1.2; PROTHROMBIN TIME 12.6 sec (9.6-11.0)
[2020-04-08] MEDS ORDERED: DEXTROSE 50% WATER 50ML SYRINGE IV ONE ×2 (17:45→21:00)
[2020-04-08] MEDS ORDERED: INSULIN REGULAR (HUMULIN R) 300UNITS/3ML IV ONE (17:45)
[2020-04-08 23:00] VITALS: BP 153/80
[2020-04-08] MEDS ORDERED: CLONIDINE 0.1MG TABLET PO PRN (23:00)
[2020-04-08] MEDS ORDERED: ACETAMINOPHEN 325MG TABLET PO PRN (23:00)
[2020-04-08] MEDS ORDERED: LORAZEPAM 2MG/ML CPJ IV PRN (23:00)
[2020-04-08] MEDS ORDERED: HYDROCODONE/ACETAMINOPHEN 5/325MG TABLET PO PRN (23:00)
[2020-04-08] MEDS ORDERED: DEXTROSE 50% WATER 50ML SYRINGE IV PRN (23:15)
[2020-04-09] VITALS: BP 124/67
[2020-04-09] MEDS ORDERED: LEVOFLOXACIN 500MG PREMIX 100 ML IV NR (01:00)
[2020-04-09 04:00] VITALS: BP 102/65
[2020-04-09] MEDS: METRONIDAZOLE 500 MG PREMIX 100 ML IV SCH ×3 (05:12→22:52)
[2020-04-09] MEDS: BLOOD SUGAR DIAGNOSTIC STRIP TEST SCH ×4 (06:25→21:17)
[2020-04-09] MEDS: INSULIN LISPRO 100 UNITS/ML SUBCUT SCH ×4 (06:26→21:00)
[2020-04-09 07:59] LABS: BASOPHILS % 0.7 % (0.0-2.0); EOSINOPHILS % 1.4 % (0.0-5.0); HEMATOCRIT. 35.7 % (42.0-52.0); HEMOGLOBIN. 11.8 g/dL (14.0-18.0); LYMPHOCYTES % 24.4 % (20.0-50.0); MEAN CORPUSCULAR HEMOGLOBIN 33.5 pg (28.0-32.0); MEAN CORPUSCULAR VOLUME 101.5 fL (80.0-94.0); MEAN PLATELET VOLUME 9.9 fl (7.4-10.4); MONOCYTES % 14.3 % (2.0-8.0); NEUTROPHILS % 59.2 % (40.0-76.0); PLATELET 85 x1000/uL (130-400); RED BLOOD CELL COUNT 3.52 mill/uL (4.7-6.1); RED CELL DISTRIBUTION WIDTH 17.8 % (11.6-14.6)
[2020-04-09 08:00] VITALS: BP 113/65
[2020-04-09] MEDS ORDERED: ENOXAPARIN 30MG/0.3ML SYR SUBCUT SCH (09:00)
[2020-04-09] MEDS: LEVETIRACETAM 500MG TABLET PO SCH ×2 (09:30→21:23)
[2020-04-09] MEDS: RISPERIDONE 0.5MG TABLET PO SCH ×2 (09:30→18:28)
[2020-04-09] MEDS: THIAMINE HCL 100MG TABLET PO SCH (09:31)
[2020-04-09] MEDS: AMLODIPINE 10MG TABLET PO SCH (09:31)
[2020-04-09 12:00] VITALS: BP 121/74
[2020-04-09] MEDS ORDERED: IOHEXOL-300 100 ML BOTTLE ONE (12:37)
[2020-04-09] MEDS: FERROUS SULFATE 325MG TABLET PO SCH (12:51)
[2020-04-09] MEDS: SEVELAMER CARBONATE 800 MG TABLET PO SCH ×3 (12:51→18:31)
[2020-04-09 20:00] VITALS: BP 103/50
[2020-04-09] MEDS ORDERED: METRONIDAZOLE 500 MG PREMIX 100 ML IV SCH (20:00)
[2020-04-09] MEDS ORDERED: TRAZODONE HCL 50MG TABLET PO SCH (21:00)
[2020-04-10] VITALS: BP 110/60
[2020-04-10 04:00] VITALS: BP 113/57
[2020-04-10] MEDS: INSULIN LISPRO 100 UNITS/ML SUBCUT SCH ×3 (06:12→17:40)
[2020-04-10] MEDS: BLOOD SUGAR DIAGNOSTIC STRIP TEST SCH ×3 (06:12→17:51)
[2020-04-10 06:51] LABS: BASOPHILS % 0.9 % (0.0-2.0); EOSINOPHILS % 1.7 % (0.0-5.0); HEMATOCRIT. 33.8 % (42.0-52.0); HEMOGLOBIN. 11.3 g/dL (14.0-18.0); LYMPHOCYTES % 19.9 % (20.0-50.0); MEAN CORPUSCULAR HEMOGLOBIN 33.9 pg (28.0-32.0); MEAN CORPUSCULAR VOLUME 101.5 fL (80.0-94.0); MEAN PLATELET VOLUME 9.8 fl (7.4-10.4); MONOCYTES % 14.7 % (2.0-8.0); NEUTROPHILS % 62.8 % (40.0-76.0); PLATELET 121 x1000/uL (130-400); RED BLOOD CELL COUNT 3.33 mill/uL (4.7-6.1); RED CELL DISTRIBUTION WIDTH 17.8 % (11.6-14.6)
[2020-04-10 08:00] VITALS: BP 112/65
[2020-04-10] MEDS: SEVELAMER CARBONATE 800 MG TABLET PO SCH ×3 (08:38→17:51)
[2020-04-10] MEDS: RISPERIDONE 0.5MG TABLET PO SCH ×2 (08:38→17:51)
[2020-04-10] MEDS: METRONIDAZOLE 500 MG PREMIX 100 ML IV SCH (08:38)
[2020-04-10] MEDS: THIAMINE HCL 100MG TABLET PO SCH (08:38)
[2020-04-10] MEDS: AMLODIPINE 10MG TABLET PO SCH (08:39)
[2020-04-10] MEDS: LEVETIRACETAM 500MG TABLET PO SCH (08:39)
[2020-04-10] MEDS: FERROUS SULFATE 325MG TABLET PO SCH (09:00)
[2020-04-10 11:54] VITALS: BP 102/54
[2020-04-10 16:00] VITALS: BP 112/65
[2020-04-10 17:09] VITALS: BP 112/65
[2020-04-10] MEDS ORDERED: LEVOFLOXACIN 250MG PREMIX 50 ML IV SCH (21:00)
== END 2020-04-10 18:20 | disposition home health service (06) | DRG 391 ==
LOC: ER 14:19 → 8WST 19:35 → EDBEDREQ 19:40 → EDBEDREQTM 19:40 → EDBEDREQ 19:46 → ENRESERV 20:16
PROVIDERS: ADMIT Internal Medicine Nephrology; ATTEND Internal Medicine Nephrology
PROC: 5A1D70Z Performance of Urinary Filtration, Intermittent, Less than 6 Hours Per Day (ICD-10-PCS; principal; 2020-04-09)
DX: A08.4 Viral intestinal infection, unspecified (principal); N18.6 End stage renal disease; I12.0 Hypertensive chronic kidney disease with stage 5 chronic kidney disease or end stage renal disease; E44.0 Moderate protein-calorie malnutrition; E87.1 Hypo-osmolality and hyponatremia; J90 Pleural effusion, not elsewhere classified; D61.818 Other pancytopenia; A04.9 Bacterial intestinal infection, unspecified; K80.20 Calculus of gallbladder without cholecystitis without obstruction; K74.60 Unspecified cirrhosis of liver; E11.22 Type 2 diabetes mellitus with diabetic chronic kidney disease; E87.5 Hyperkalemia; F03.90 Unspecified dementia, unspecified severity, without behavioral disturbance, psychotic disturbance, mood disturbance, and anxiety; N40.0 Benign prostatic hyperplasia without lower urinary tract symptoms; Z99.2 Dependence on renal dialysis; Z79.899 Other long term (current) drug therapy; Z03.818 Encounter for observation for suspected exposure to other biological agents ruled out; I48.91 Unspecified atrial fibrillation
CPT/HCPCS: 36415; 71045; 74177; 80048; 80053; 82962; 83036; 83605; 83735; 85025; 87015; 87045; 87427; 87449; 87493; 87635; 93005; 99285; J1650; J1815; J1956; J3490; J7050; Q9967

== ENCOUNTER 2020-11-17 21:23 | Emergency (ER) | payer MEDICARE, MEDICAID ==
[~2020-11-17] VITALS: Ht 160 cm; Wt 55.0 kg
[2020-11-17 22:41] LABS: BASOPHILS % 0.9 % (0.0-2.0); HEMOGLOBIN. 10.7 g/dL (14.0-18.0); MEAN PLATELET VOLUME 8.1 fl (7.4-10.4); MONOCYTES % 12.4 % (2.0-8.0); NEUTROPHILS % 57.7 % (40.0-76.0); PLATELET 175 x1000/uL (130-400); RED BLOOD CELL COUNT 2.98 mill/uL (4.7-6.1); RED CELL DISTRIBUTION WIDTH 15.7 % (11.6-14.6)
[2020-11-17 22:49] LABS: CHLORIDE 98 mEq/L (98-107)
[2020-11-17 22:52] LABS: INR 1.1; PARTIAL THROMBOPLASTIN TIME 31.3 sec (23.4-31.0); PROTHROMBIN TIME 11.8 sec (9.6-11.0)
[2020-11-17 23:50] VITALS: BP 137/61
== END 2020-11-17 23:50 | disposition home or self-care (01) ==
LOC: ER 21:23
DX: R19.7 Diarrhea, unspecified (principal); K92.2 Gastrointestinal hemorrhage, unspecified; I10 Essential (primary) hypertension; Z98.890 Other specified postprocedural states
CPT/HCPCS: 36415; 71045; 80053; 85025; 86850; 86900; 93005; 99285

== ENCOUNTER 2021-02-27 14:45 | Inpatient (IN) | payer MEDICARE, MEDICAID ==
[~2021-02-27] VITALS: Ht 162.6 cm; Wt 60.4 kg
[2021-02-27] MEDS ORDERED: MORPHINE SULFATE 2 MG/ML CPJ (NOT FOR IM USE) IV ONE (15:30)
[2021-02-27 17:37] LABS: BASOPHILS % 0.7 % (0.0-2.0); EOSINOPHILS % 1.5 % (0.0-5.0); HEMATOCRIT. 27.6 % (42.0-52.0); HEMOGLOBIN. 9.7 g/dL (14.0-18.0); LYMPHOCYTES % 19.1 % (20.0-50.0); MEAN CORPUSCULAR HEMOGLOBIN 35.5 pg (28.0-32.0); MEAN CORPUSCULAR VOLUME 101.3 fL (80.0-94.0); MEAN PLATELET VOLUME 8.5 fl (7.4-10.4); MONOCYTES % 9.8 % (2.0-8.0); NEUTROPHILS % 68.9 % (40.0-76.0); PLATELET 185 x1000/uL (130-400); RED BLOOD CELL COUNT 2.72 mill/uL (4.7-6.1); RED CELL DISTRIBUTION WIDTH 16.9 % (11.6-14.6)
[2021-02-27 17:42] LABS: CHLORIDE 101 mEq/L (98-107)
[2021-02-27 22:30] VITALS: BP 150/62
[2021-02-27] MEDS: MORPHINE SULFATE 2 MG/ML CPJ (NOT FOR IM USE) IV PRN (23:27)
[2021-02-28] VITALS (7 sets, daily range): BP systolic 122–160; BP diastolic 43–95
[2021-02-28] MEDS: MORPHINE SULFATE 2 MG/ML CPJ (NOT FOR IM USE) IV PRN ×2 (03:38→22:17)
[2021-02-28 07:45] LABS: BASOPHILS % 0.9 % (0.0-2.0); EOSINOPHILS % 1.8 % (0.0-5.0); HEMATOCRIT. 29.1 % (42.0-52.0); HEMOGLOBIN. 9.8 g/dL (14.0-18.0); LYMPHOCYTES % 23.1 % (20.0-50.0); MEAN CORPUSCULAR HEMOGLOBIN 34.2 pg (28.0-32.0); MEAN CORPUSCULAR VOLUME 101.4 fL (80.0-94.0); MEAN PLATELET VOLUME 9.3 fl (7.4-10.4); MONOCYTES % 11.2 % (2.0-8.0); PLATELET 203 x1000/uL (130-400); RED BLOOD CELL COUNT 2.87 mill/uL (4.7-6.1)
[2021-02-28 08:07] LABS: CHLORIDE 101 mEq/L (98-107)
[2021-02-28 08:22] LABS: PHOSPHORUS 5.2 mg/dL (2.5-4.9)
[2021-02-28] MEDS: SEVELAMER CARBONATE 800 MG TABLET PO SCH ×3 (08:47→17:22)
[2021-02-28] MEDS: METOPROLOL TARTRATE 50MG TABLET PO SCH ×2 (08:47→20:54)
[2021-02-28] MEDS: AMLODIPINE 10MG TABLET PO SCH (08:47)
[2021-02-28] MEDS ORDERED: HYDROCODONE/ACETAMINOPHEN 5/325MG TABLET PO PRN (11:00)
[2021-02-28 13:58] LABS: HEPATITIS B SURFACE ANTIGEN NEGATIVE
[2021-02-28 14:25] LABS: HEPATITIS A AB IGM NEGATIVE (NEGATIVE)
[2021-03-01] VITALS: BP 126/48
[2021-03-01] MEDS: LORAZEPAM 2MG/ML CPJ IV PRN (01:23)
[2021-03-01 04:00] VITALS: BP 119/41
[2021-03-01 06:22] LABS: HEMATOCRIT. 28.5 % (42.0-52.0); HEMOGLOBIN. 9.6 g/dL (14.0-18.0); MEAN CORPUSCULAR HEMOGLOBIN 34.1 pg (28.0-32.0); MEAN CORPUSCULAR VOLUME 101.5 fL (80.0-94.0); MEAN PLATELET VOLUME 9.1 fl (7.4-10.4); PLATELET 189 x1000/uL (130-400); RED BLOOD CELL COUNT 2.81 mill/uL (4.7-6.1); RED CELL DISTRIBUTION WIDTH 16.9 % (11.6-14.6)
[2021-03-01 08:00] VITALS: BP 135/58
[2021-03-01] MEDS: AMLODIPINE 10MG TABLET PO SCH (09:35)
[2021-03-01] MEDS: SEVELAMER CARBONATE 800 MG TABLET PO SCH ×3 (09:35→17:50)
[2021-03-01] MEDS: METOPROLOL TARTRATE 50MG TABLET PO SCH (09:35)
[2021-03-01 12:00] VITALS: BP 131/53
[2021-03-01 16:00] VITALS: BP 133/41
[2021-03-01 16:44] LABS: PLATELET ESTIMATE NORMAL
[2021-03-01 20:00] VITALS: BP 139/56
[2021-03-02] VITALS: BP 154/75
[2021-03-02] MEDS: LORAZEPAM 2MG/ML CPJ IV PRN ×3 (01:10→20:26)
[2021-03-02] MEDS: METOPROLOL TARTRATE 50MG TABLET PO SCH ×3 (01:11→20:26)
[2021-03-02 04:00] VITALS: BP 106/40
[2021-03-02 08:00] VITALS: BP 116/61
[2021-03-02] MEDS: AMLODIPINE 10MG TABLET PO SCH (09:00)
[2021-03-02] MEDS: SEVELAMER CARBONATE 800 MG TABLET PO SCH ×3 (09:00→16:51)
[2021-03-02 12:00] VITALS: BP 103/44
[2021-03-02 15:52] LABS: HEMATOCRIT. 28.7 % (42.0-52.0); MEAN CORPUSCULAR HEMOGLOBIN 35.4 pg (28.0-32.0); MEAN CORPUSCULAR VOLUME 101.6 fL (80.0-94.0); MEAN PLATELET VOLUME 9.8 fl (7.4-10.4); PLATELET 167 x1000/uL (130-400); RED BLOOD CELL COUNT 2.83 mill/uL (4.7-6.1); RED CELL DISTRIBUTION WIDTH 16.9 % (11.6-14.6)
[2021-03-02 16:00] VITALS: BP 118/65
[2021-03-02 17:07] LABS: PLATELET ESTIMATE NORMAL
[2021-03-02 20:00] VITALS: BP 127/47
[2021-03-02] MEDS: MORPHINE SULFATE 2 MG/ML CPJ (NOT FOR IM USE) IV PRN (23:07)
[2021-03-03] VITALS: BP 101/81
[2021-03-03 04:00] VITALS: BP 113/45
[2021-03-03 05:21] LABS: HEMATOCRIT. 30.8 % (42.0-52.0); HEMOGLOBIN. 10.2 g/dL (14.0-18.0); MEAN CORPUSCULAR HEMOGLOBIN 33.8 pg (28.0-32.0); MEAN CORPUSCULAR VOLUME 102.5 fL (80.0-94.0); MEAN PLATELET VOLUME 9.5 fl (7.4-10.4); PLATELET 181 x1000/uL (130-400); RED BLOOD CELL COUNT 3.01 mill/uL (4.7-6.1); RED CELL DISTRIBUTION WIDTH 16.9 % (11.6-14.6)
[2021-03-03] MEDS: MORPHINE SULFATE 2 MG/ML CPJ (NOT FOR IM USE) IV PRN (05:53)
[2021-03-03 08:00] VITALS: BP 114/51
[2021-03-03] MEDS: METOPROLOL TARTRATE 50MG TABLET PO SCH ×2 (09:00→21:00)
[2021-03-03] MEDS: AMLODIPINE 10MG TABLET PO SCH (09:00)
[2021-03-03] MEDS: SEVELAMER CARBONATE 800 MG TABLET PO SCH ×3 (09:00→16:32)
[2021-03-03] MEDS: LORAZEPAM 2MG/ML CPJ IV PRN ×2 (10:55→22:17)
[2021-03-03 12:00] VITALS: BP 114/50
[2021-03-03 16:00] VITALS: BP 136/69
[2021-03-03] MEDS ORDERED: MORPHINE SULFATE/PF 1MG/ML 10ML AMP ONE (16:19)
[2021-03-03] MEDS ORDERED: SODIUM CHLORIDE 0.9% INJ 10ML FLUSH IVF ONE (16:20)
[2021-03-03] MEDS ORDERED: ROPIVACAINE HCL 10MG/ML 20 ML VIAL EPI ONE ×2 (16:20→18:19)
[2021-03-03] MEDS ORDERED: KETOROLAC 30MG/ML VIAL ONE (16:20)
[2021-03-03] MEDS ORDERED: EPINEPHRINE 1:1000 1 MG/ML AMP ONE (16:20)
[2021-03-03] MEDS ORDERED: VANCOMYCIN HCL 1 GM/VIAL ONE (16:21)
[2021-03-03] MEDS ORDERED: POLYMYXIN B SULFATE 500000 UNITS/VIAL ONE (16:22)
[2021-03-03] MEDS ORDERED: TRANEXAMIC ACID 1,000 MG in SODIUM CHLORIDE 0.9% 100 ML IV NR (16:30)
[2021-03-03] MEDS ORDERED: TRANEXAMIC ACID 1,000 MG/10 ML IV ONE (16:30)
[2021-03-03] MEDS: DOCUSATE SODIUM 100MG CAPSULE PO SCH (16:32)
[2021-03-03] MEDS ORDERED: GLYCOPYRROLATE 0.2 MG/ML 2ML VIAL ONE (17:52)
[2021-03-03] MEDS ORDERED: FENTANYL CITRATE/PF 50MCG/ML 2ML VIAL ONE (17:54)
[2021-03-03 17:57] LABS: PLATELET ESTIMATE NORMAL
[2021-03-03] MEDS ORDERED: DEXAMETHASONE 4MG/ML 1ML VIAL ONE (18:18)
[2021-03-03] MEDS ORDERED: ONDANSETRON HCL 4MG/2ML INJ IV PRN (19:15)
[2021-03-03] MEDS ORDERED: MEPERIDINE HCL/PF 25MG/ML CPJ IV PRN (19:15)
[2021-03-03] MEDS ORDERED: LABETALOL 5MG/ML SYR 20 MG/4 ML SYRINGE IV PRN (19:15)
[2021-03-03] MEDS ORDERED: CEFAZOLIN SODIUM 1000MG/VIAL IV SCH (22:00)
[2021-03-03] MEDS: CEFAZOLIN 1000MG PREMIX 50 ML IV SCH (23:16)
[2021-03-04] VITALS: BP 118/51
[2021-03-04 04:00] VITALS: BP 107/62
[2021-03-04] MEDS: MORPHINE SULFATE 2 MG/ML CPJ (NOT FOR IM USE) IV PRN ×2 (04:39→22:48)
[2021-03-04 06:31] LABS: BASOPHILS % 0.3 % (0.0-2.0); EOSINOPHILS % 0.1 % (0.0-5.0); HEMATOCRIT. 32.3 % (42.0-52.0); HEMOGLOBIN. 10.5 g/dL (14.0-18.0); MEAN CORPUSCULAR HEMOGLOBIN 33.7 pg (28.0-32.0); MEAN CORPUSCULAR VOLUME 103.4 fL (80.0-94.0); MEAN PLATELET VOLUME 9.4 fl (7.4-10.4); MONOCYTES % 2.2 % (2.0-8.0); NEUTROPHILS % 78.4 % (40.0-76.0); PLATELET 201 x1000/uL (130-400); RED BLOOD CELL COUNT 3.13 mill/uL (4.7-6.1); RED CELL DISTRIBUTION WIDTH 17.4 % (11.6-14.6)
[2021-03-04 08:00] VITALS: BP 136/81
[2021-03-04] MEDS: SEVELAMER CARBONATE 800 MG TABLET PO SCH ×3 (09:00→17:52)
[2021-03-04] MEDS: AMLODIPINE 10MG TABLET PO SCH (09:00)
[2021-03-04] MEDS: METOPROLOL TARTRATE 50MG TABLET PO SCH ×2 (09:00→20:21)
[2021-03-04] MEDS: DOCUSATE SODIUM 100MG CAPSULE PO SCH ×2 (09:00→17:52)
[2021-03-04 12:00] VITALS: BP 123/63
[2021-03-04] MEDS ORDERED: METOPROLOL TARTRATE 5MG/5ML VIAL IV PRN (13:45)
[2021-03-04] MEDS: LORAZEPAM 2MG/ML CPJ IV PRN ×2 (14:21→20:26)
[2021-03-04 16:00] VITALS: BP 114/47
[2021-03-04 20:00] VITALS: BP 113/45
[2021-03-04] MEDS: CEFAZOLIN 1000MG PREMIX 50 ML IV SCH (21:14)
[2021-03-05] VITALS: BP 129/59
[2021-03-05] MEDS: LORAZEPAM 2MG/ML CPJ IV PRN (02:31)
[2021-03-05 04:00] VITALS: BP 135/57
[2021-03-05] MEDS: MORPHINE SULFATE 2 MG/ML CPJ (NOT FOR IM USE) IV PRN (04:41)
[2021-03-05 07:01] LABS: BASOPHILS % 0.4 % (0.0-2.0); HEMATOCRIT. 30.1 % (42.0-52.0); HEMOGLOBIN. 10.1 g/dL (14.0-18.0); LYMPHOCYTES % 10.8 % (20.0-50.0); MEAN CORPUSCULAR HEMOGLOBIN 34.6 pg (28.0-32.0); MEAN PLATELET VOLUME 9.9 fl (7.4-10.4); MONOCYTES % 8.6 % (2.0-8.0); NEUTROPHILS % 80.2 % (40.0-76.0); PLATELET 187 x1000/uL (130-400); RED BLOOD CELL COUNT 2.93 mill/uL (4.7-6.1); RED CELL DISTRIBUTION WIDTH 16.9 % (11.6-14.6)
[2021-03-05 08:00] VITALS: BP_SYST 116; BP_SYST 129; BP_DIAS 43; BP_DIAS 62
[2021-03-05] MEDS: METOPROLOL TARTRATE 50MG TABLET PO SCH ×2 (09:17→21:24)
[2021-03-05] MEDS: SEVELAMER CARBONATE 800 MG TABLET PO SCH ×3 (09:18→17:00)
[2021-03-05] MEDS: AMLODIPINE 10MG TABLET PO SCH (09:18)
[2021-03-05] MEDS: DOCUSATE SODIUM 100MG CAPSULE PO SCH ×2 (09:18→17:01)
[2021-03-05 12:00] VITALS: BP 131/57
[2021-03-05 16:00] VITALS: BP 111/58
[2021-03-05 20:00] VITALS: BP 121/64
[2021-03-06] VITALS (57 sets, daily range): BP systolic 80–148; BP diastolic 26–97
[2021-03-06 06:20] LABS: BASOPHILS % 0.3 % (0.0-2.0); HEMATOCRIT. 32.7 % (42.0-52.0); HEMOGLOBIN. 10.8 g/dL (14.0-18.0); LYMPHOCYTES % 15.5 % (20.0-50.0); MEAN CORPUSCULAR HEMOGLOBIN 34.1 pg (28.0-32.0); MEAN CORPUSCULAR VOLUME 103.5 fL (80.0-94.0); MEAN PLATELET VOLUME 9.8 fl (7.4-10.4); MONOCYTES % 8.4 % (2.0-8.0); NEUTROPHILS % 75.8 % (40.0-76.0); PLATELET 202 x1000/uL (130-400); RED BLOOD CELL COUNT 3.16 mill/uL (4.7-6.1); RED CELL DISTRIBUTION WIDTH 17.7 % (11.6-14.6)
[2021-03-06] MEDS: SEVELAMER CARBONATE 800 MG TABLET PO SCH ×3 (08:56→17:00)
[2021-03-06] MEDS: AMLODIPINE 10MG TABLET PO SCH (08:57)
[2021-03-06] MEDS: DOCUSATE SODIUM 100MG CAPSULE PO SCH ×2 (08:57→17:00)
[2021-03-06] MEDS: METOPROLOL TARTRATE 50MG TABLET PO SCH ×2 (08:58→21:00)
[2021-03-06] MEDS ORDERED: NOREPINEPHRINE 8 MG in DEXT 5% WATER 242 ML IV PRN (12:45)
[2021-03-06] MEDS ORDERED: NOREPINEPHRINE 32 MG in DEXT 5% WATER 218 ML IV PRN (12:45)
[2021-03-06 12:58] LABS: HEMATOCRIT 21.8 % (42.0-52.0); HEMOGLOBIN 7.5 g/dL (14.0-18.0)
[2021-03-06] MEDS ORDERED: ENOXAPARIN 30MG/0.3ML SYR SUBCUT SCH (13:00)
[2021-03-06] MEDS ORDERED: SODIUM CHLORIDE 0.9% 1,000 ML IV ONE (13:00)
[2021-03-06] MEDS: PANTOPRAZOLE SODIUM 40 MG/VIAL IV SCH ×2 (13:16→22:59)
[2021-03-06] MEDS: MORPHINE SULFATE 2 MG/ML CPJ (NOT FOR IM USE) IV PRN (14:04)
[2021-03-06] MEDS: PHENYLEPHRINE 100 MG in DEXT 5% WATER 240 ML IV PRN (15:34)
[2021-03-06 19:28] LABS: HEMATOCRIT 26.8 % (42.0-52.0)
[2021-03-07] VITALS (99 sets, daily range): BP systolic 61–151; BP diastolic 25–102
[2021-03-07] MEDS: MORPHINE SULFATE 2 MG/ML CPJ (NOT FOR IM USE) IV PRN (03:29)
[2021-03-07] MEDS: PHENYLEPHRINE 100 MG in DEXT 5% WATER 240 ML IV PRN (04:18)
[2021-03-07 06:01] LABS: BASOPHILS % 0.1 % (0.0-2.0); EOSINOPHILS % 0.1 % (0.0-5.0); HEMATOCRIT. 25.6 % (42.0-52.0); HEMOGLOBIN. 8.5 g/dL (14.0-18.0); LYMPHOCYTES % 14.4 % (20.0-50.0); MEAN CORPUSCULAR HEMOGLOBIN 32.2 pg (28.0-32.0); MEAN CORPUSCULAR VOLUME 97.5 fL (80.0-94.0); MEAN PLATELET VOLUME 9.3 fl (7.4-10.4); MONOCYTES % 8.8 % (2.0-8.0); NEUTROPHILS % 76.6 % (40.0-76.0); PLATELET 187 x1000/uL (130-400); RED BLOOD CELL COUNT 2.62 mill/uL (4.7-6.1); RED CELL DISTRIBUTION WIDTH 18.9 % (11.6-14.6)
[2021-03-07 07:38] LABS: VITAMIN B12 SERUM >2000 pg/mL pg/mL (211-911)
[2021-03-07 07:59] LABS: FERRITIN 1706 ng/mL (22-322)
[2021-03-07] MEDS ORDERED: LIDOCAINE HCL 1% 20ML VIAL (Pyxis) INJ ONE (08:16)
[2021-03-07] MEDS ORDERED: AMIODARONE HCL 150 MG in DEXT 5% WATER 100 ML IV SCH (09:00)
[2021-03-07] MEDS ORDERED: ENOXAPARIN 30MG/0.3ML SYR SUBCUT SCH (09:00)
[2021-03-07] MEDS: DOCUSATE SODIUM 100MG CAPSULE PO SCH ×2 (09:00→16:46)
[2021-03-07] MEDS: METOPROLOL TARTRATE 50MG TABLET PO SCH ×3 (09:00→20:32)
[2021-03-07] MEDS: AMLODIPINE 10MG TABLET PO SCH (09:00)
[2021-03-07] MEDS: SEVELAMER CARBONATE 800 MG TABLET PO SCH ×3 (09:00→16:47)
[2021-03-07] MEDS ORDERED: LORAZEPAM 2MG/ML CPJ IV NR (09:15)
[2021-03-07] MEDS: PANTOPRAZOLE SODIUM 40 MG/VIAL IV SCH ×2 (09:54→20:08)
[2021-03-07] MEDS: AMIODARONE HCL 900 MG in DEXT 5% WATER 482 ML IV PRN (09:56)
[2021-03-07 11:15] LABS: BASOPHILS % 0.4 % (0.0-2.0); EOSINOPHILS % 0.4 % (0.0-5.0); HEMATOCRIT. 23.9 % (42.0-52.0); HEMOGLOBIN. 8.3 g/dL (14.0-18.0); LYMPHOCYTES % 16.1 % (20.0-50.0); MEAN CORPUSCULAR HEMOGLOBIN 33.9 pg (28.0-32.0); MEAN CORPUSCULAR VOLUME 97.5 fL (80.0-94.0); MEAN PLATELET VOLUME 9.3 fl (7.4-10.4); MONOCYTES % 9.6 % (2.0-8.0); NEUTROPHILS % 73.5 % (40.0-76.0); PLATELET 156 x1000/uL (130-400); RED BLOOD CELL COUNT 2.45 mill/uL (4.7-6.1); RED CELL DISTRIBUTION WIDTH 18.7 % (11.6-14.6)
[2021-03-08] VITALS (91 sets, daily range): BP systolic 89–156; BP diastolic 19–94
[2021-03-08] MEDS: PHENYLEPHRINE 100 MG in DEXT 5% WATER 240 ML IV PRN (01:49)
[2021-03-08 05:34] LABS: BASOPHILS % 0.1 % (0.0-2.0); MEAN CORPUSCULAR HEMOGLOBIN 32.5 pg (28.0-32.0); MEAN CORPUSCULAR VOLUME 97.9 fL (80.0-94.0); MEAN PLATELET VOLUME 9.1 fl (7.4-10.4); MONOCYTES % 8.2 % (2.0-8.0); NEUTROPHILS % 72.7 % (40.0-76.0); PLATELET 159 x1000/uL (130-400); RED BLOOD CELL COUNT 2.12 mill/uL (4.7-6.1); RED CELL DISTRIBUTION WIDTH 18.2 % (11.6-14.6)
[2021-03-08 05:46] LABS: HEMATOCRIT. 20.8 % (42.0-52.0); HEMOGLOBIN. 6.9 g/dL (14.0-18.0)
[2021-03-08] MEDS: MIDODRINE HCL 5MG TABLET PO SCH ×3 (09:45→17:54)
[2021-03-08] MEDS: DOCUSATE SODIUM 100MG CAPSULE PO SCH ×2 (09:49→17:54)
[2021-03-08] MEDS: SEVELAMER CARBONATE 800 MG TABLET PO SCH ×3 (09:49→17:53)
[2021-03-08] MEDS: PANTOPRAZOLE SODIUM 40 MG/VIAL IV SCH ×2 (09:49→20:58)
[2021-03-08] MEDS: AMIODARONE HCL 900 MG in DEXT 5% WATER 482 ML IV PRN (11:04)
[2021-03-08 13:12] LABS: HEMATOCRIT 24.3 % (42.0-52.0); HEMOGLOBIN 8.7 g/dL (14.0-18.0)
[2021-03-08] MEDS: AMIODARONE HCL 200 MG TABLET PO SCH ×2 (13:52→17:54)
[2021-03-08] MEDS: MORPHINE SULFATE 2 MG/ML CPJ (NOT FOR IM USE) IV PRN (14:55)
[2021-03-09] VITALS (63 sets, daily range): BP systolic 97–179; BP diastolic 29–113
[2021-03-09] MEDS: MORPHINE SULFATE 2 MG/ML CPJ (NOT FOR IM USE) IV PRN ×3 (01:58→13:21)
[2021-03-09 05:52] LABS: BASOPHILS % 0.1 % (0.0-2.0); EOSINOPHILS % 0.8 % (0.0-5.0); HEMATOCRIT. 25.9 % (42.0-52.0); HEMOGLOBIN. 8.9 g/dL (14.0-18.0); LYMPHOCYTES % 20.3 % (20.0-50.0); MEAN CORPUSCULAR HEMOGLOBIN 32.7 pg (28.0-32.0); MEAN CORPUSCULAR VOLUME 95.8 fL (80.0-94.0); MEAN PLATELET VOLUME 8.6 fl (7.4-10.4); MONOCYTES % 8.8 % (2.0-8.0); PLATELET 168 x1000/uL (130-400); RED CELL DISTRIBUTION WIDTH 17.9 % (11.6-14.6)
[2021-03-09] MEDS: AMIODARONE HCL 200 MG TABLET PO SCH ×3 (08:33→17:30)
[2021-03-09] MEDS: MIDODRINE HCL 5MG TABLET PO SCH (08:33)
[2021-03-09] MEDS: SEVELAMER CARBONATE 800 MG TABLET PO SCH ×3 (08:33→17:31)
[2021-03-09] MEDS: DOCUSATE SODIUM 100MG CAPSULE PO SCH ×2 (08:33→17:31)
[2021-03-09] MEDS: PANTOPRAZOLE SODIUM 40 MG/VIAL IV SCH ×2 (08:33→21:40)
[2021-03-09] MEDS: RISPERIDONE 0.5MG TABLET PO SCH ×2 (11:01→17:30)
[2021-03-10] VITALS (7 sets, daily range): BP systolic 99–145; BP diastolic 38–63
[2021-03-10 06:48] LABS: BASOPHILS % 0.5 % (0.0-2.0); EOSINOPHILS % 1.2 % (0.0-5.0); HEMATOCRIT. 25.3 % (42.0-52.0); HEMOGLOBIN. 8.5 g/dL (14.0-18.0); LYMPHOCYTES % 10.3 % (20.0-50.0); MEAN CORPUSCULAR HEMOGLOBIN 32.7 pg (28.0-32.0); MEAN PLATELET VOLUME 8.8 fl (7.4-10.4); MONOCYTES % 5.9 % (2.0-8.0); NEUTROPHILS % 82.1 % (40.0-76.0); PLATELET 162 x1000/uL (130-400); RED BLOOD CELL COUNT 2.61 mill/uL (4.7-6.1); RED CELL DISTRIBUTION WIDTH 17.8 % (11.6-14.6)
[2021-03-10] MEDS: PANTOPRAZOLE SODIUM 40 MG/VIAL IV SCH ×2 (09:10→20:25)
[2021-03-10] MEDS: DOCUSATE SODIUM 100MG CAPSULE PO SCH ×2 (09:11→16:27)
[2021-03-10] MEDS: RISPERIDONE 0.5MG TABLET PO SCH ×2 (09:11→16:26)
[2021-03-10] MEDS: SEVELAMER CARBONATE 800 MG TABLET PO SCH ×3 (09:11→16:26)
[2021-03-10] MEDS: AMIODARONE HCL 200 MG TABLET PO SCH ×3 (09:11→16:26)
[2021-03-10] MEDS: HYDROCODONE/ACETAMINOPHEN 5/325MG TABLET PO PRN ×2 (12:10→20:26)
[2021-03-10] MEDS ORDERED: HYDR-4001 PO (16:10)
[2021-03-10] MEDS ORDERED: RISP05 MT (16:10)
[2021-03-10] MEDS ORDERED: EPOETIN ALFA-EPBX 10,000 UNIT/ML VIAL SUBCUT SCH (21:00)
[2021-03-10] MEDS ORDERED: METOPROLOL TARTRATE 25MG TABLET PO SCH (21:00)
== END 2021-03-10 21:35 | disposition home or self-care (01) | DRG 521 ==
LOC: ER 14:45 → 5WST 19:07 → ENRESERV 20:12 → EDBEDREQ 20:20 → EDBEDREQTM 20:20 → CVICU 03-06 12:41 → 5WST 03-09 16:21
PROVIDERS: ADMIT Internal Medicine; ATTEND Internal Medicine
PROC: 5A1D70Z Performance of Urinary Filtration, Intermittent, Less than 6 Hours Per Day (ICD-10-PCS; 2021-02-28)
PROC: 5A1D70Z Performance of Urinary Filtration, Intermittent, Less than 6 Hours Per Day (ICD-10-PCS; 2021-03-01)
PROC: 0SRS0JA Replacement of Left Hip Joint, Femoral Surface with Synthetic Substitute, Uncemented, Open Approach (ICD-10-PCS; principal; 2021-03-03)
PROC: 5A1D70Z Performance of Urinary Filtration, Intermittent, Less than 6 Hours Per Day (ICD-10-PCS; 2021-03-04)
PROC: 30233N1 Transfusion of Nonautologous Red Blood Cells into Peripheral Vein, Percutaneous Approach (ICD-10-PCS; 2021-03-06)
PROC: 05H533Z Insertion of Infusion Device into Right Subclavian Vein, Percutaneous Approach (ICD-10-PCS; 2021-03-07)
PROC: B546ZZA Ultrasonography of Right Subclavian Vein, Guidance (ICD-10-PCS; 2021-03-07)
PROC: 5A1D70Z Performance of Urinary Filtration, Intermittent, Less than 6 Hours Per Day (ICD-10-PCS; 2021-03-07)
PROC: 5A1D70Z Performance of Urinary Filtration, Intermittent, Less than 6 Hours Per Day (ICD-10-PCS; 2021-03-08)
PROC: 5A1D80Z Performance of Urinary Filtration, Prolonged Intermittent, 6-18 hours Per Day (ICD-10-PCS; 2021-03-10)
DX: S72.002A Fracture of unspecified part of neck of left femur, initial encounter for closed fracture (principal); N18.6 End stage renal disease; I50.33 Acute on chronic diastolic (congestive) heart failure; E87.1 Hypo-osmolality and hyponatremia; E44.0 Moderate protein-calorie malnutrition; I13.2 Hypertensive heart and chronic kidney disease with heart failure and with stage 5 chronic kidney disease, or end stage renal disease; I48.19 Other persistent atrial fibrillation; K92.2 Gastrointestinal hemorrhage, unspecified; M85.80 Other specified disorders of bone density and structure, unspecified site; M16.0 Bilateral primary osteoarthritis of hip; E87.5 Hyperkalemia; E11.22 Type 2 diabetes mellitus with diabetic chronic kidney disease; D64.9 Anemia, unspecified; Z20.822 Contact with and (suspected) exposure to COVID-19; Z99.2 Dependence on renal dialysis; F03.90 Unspecified dementia, unspecified severity, without behavioral disturbance, psychotic disturbance, mood disturbance, and anxiety; I35.0 Nonrheumatic aortic (valve) stenosis; I27.20 Pulmonary hypertension, unspecified; W18.39XA Other fall on same level, initial encounter; I36.1 Nonrheumatic tricuspid (valve) insufficiency; I25.10 Atherosclerotic heart disease of native coronary artery without angina pectoris; Z79.899 Other long term (current) drug therapy; Y93.89 Activity, other specified; Y92.89 Other specified places as the place of occurrence of the external cause; Y99.8 Other external cause status; Z68.22 Body mass index [BMI] 22.0-22.9, adult; Z98.61 Coronary angioplasty status; R79.89 Other specified abnormal findings of blood chemistry
CPT/HCPCS: 36415; 71045; 72170; 72192; 73522; 76937; 78278; 80048; 80053; 82607; 82728; 82746; 82962; 83540; 83550; 83735; 83880; 84100; 84132; 84484; 85014; 85018; 85025; 85044; 86705; 86709; 86803; 86850; 86900; 86920; 87340; 87426; 88305; 88307; 88311; 92610; 93005; 93306; 93970; 97162; 97164; 97166; 97530; 99291; A9560; C1725; C1769; C1776; C1893; C9113; J0282; J0690; J0885; J1100; J1885; J2060; J2270; J2274; J2370; J2795; J3010; J3370; J3490; J7040; J7050; J7060; P9016; A4315